=== PATIENT | female | born 1990 | race Caucasian/White ===

== ENCOUNTER 2020-01-16 13:06 | Outpatient (REF) | payer MEDICAID, SELFPAY ==
--- NOTE | 2020-01-16 13:18 | US_ITS ---
EXAMINATION: US DIAGNOSTIC ULTRASOUND BREAST, RIGHT US DIAGNOSTIC ULTRASOUND BREAST, LEFT CLINICAL INFORMATION: 30-year-old with approximately 2 year history of bilateral milky nipple discharge, persistent since cessation of breast-feeding around 2 years ago. Patient notes unremarkable endocrine evaluation and brain MRI. COMPARISON: Brain MRI 07/19/2019. TECHNIQUE: Ultrasound of the bilateral breasts is performed retroareolar and periareolar regions. Grayscale imaging and color Doppler are performed without and with harmonics. At time of imaging, patient also notes area of palpable interest mid 9:00 position which is also included in the imaging. FINDINGS: Right: There is an incidental mildly complicated cyst retroareolar 9:00 position measuring 7 x 3 mm with fine internal avascular septation. There is increased through-transmission of sound. No associated color flow. There is no cystic or solid mass or architectural abnormality at site of patient's palpable concern. The remainder of the targeted areas show no mass or duct ectasia. No edema tracking in soft tissue planes. Left: There is no focal suspicious finding. There is no cystic or solid mass, architectural abnormality, duct ectasia, or edema in the soft tissue planes. Results are discussed with the patient at time of visit. IMPRESSION: 1. Normal study. Incidental cyst under 1 cm retroareolar right breast with fine avascular septation. 2. No solid mass, architectural abnormality, or focal duct ectasia. ASSESSMENT: BI-RADS 2: Benign RECOMMENDATION: Patient's chronic bilateral milky nipple discharge should be managed based on the clinical impression. If clinically indicated, additional imaging of the breasts could be performed with MRI without and with gadolinium contrast.
== END 2020-01-16 13:07 | disposition home or self-care (01) ==
LOC: HO.MAMMO 13:06
PROVIDERS: PCP Family Medicine; Visit Provider Family Medicine
DX: N64.52 Nipple discharge (principal)
CPT/HCPCS: 76642

== ENCOUNTER 2020-01-18 09:14 | Day surgery (SDC) | payer MEDICAID, SELFPAY ==
[2020-01-15 12:26] VITALS: BMI 27.8
--- NOTE | 2020-01-17 14:02 | P.CONAN_ITS ---
Documented by User: Nia Hoyt 01/17/20 14:03 HPI - Anesthesia Eval Consult details Narrative: 30yo F for medial branch block PMFSH Past Medical History Medical History Anxiety Asthma Back pain, thoracic Depression Hx of iron deficiency anemia Hx of small bowel obstruction Post traumatic stress disorder (PTSD) Seasonal allergies Surgical History Surgical History Hx laparoscopic cholecystectomy Hx of abdominoplasty Hx of gastric bypass Hx of ovarian cystectomy Social History Social History Smoking Status: Former smoker Smoking Quit Date: 2016 Use of substances other than those prescribed or required for medical reasons: No Advance Directives: No Advance Directives Information Provided: No Advance Directives on File: No Meds Allergies Allergy/AdvReac Type Severity Reaction Status Date / Time No Known Allergies Allergy Verified 01/15/20 12:21 [No Known Allergies*] Home Medications Medication Instructions Recorded Confirmed Type albuterol sulfate [ProAir HFA] 2 puff INHALATION Q4-6H PRN 01/15/20 01/15/20 History buspirone 5 mg PO BID 01/15/20 01/15/20 History ibuprofen 800 mg PO Q8H PRN 01/15/20 01/15/20 History trazodone 50 mg PO BEDTIME 01/15/20 01/15/20 History valacyclovir 500 mg PO BID PRN 01/15/20 01/15/20 History Exam Exam Date and Time: January 17, 2020 1402 Height,Weight and Vital Signs: Height 5 ft 2 in Weight 68.946 kg Pertinent Lab Results Pertinent Lab Results: Laboratory Tests 08/31/19 10/11/19 14:19 08:35 WBC 5.5 Hgb 12.5 Hct 40.2 Plt Count 194 Sodium 138 Potassium 4.2 Chloride 104 BUN 16 D Creatinine 0.78 Assessment and Plan Assessment Anesthesia Assessment: Chart Reviewed Documented by User: Cody Miguel 01/18/20 09:41 PMFSH Past Medical History Medical History Anxiety Asthma Back pain, thoracic Depression Hx of iron deficiency anemia Hx of small bowel obstruction Post traumatic stress disorder (PTSD) Seasonal allergies Surgical History Surgical History Hx laparoscopic cholecystectomy Hx of abdominoplasty Hx of gastric bypass Hx of ovarian cystectomy Social History Social History Smoking Status: Former smoker Smoking Quit Date: 2016 Use of substances other than those prescribed or required for medical reasons: No Advance Directives: No Advance Directives Information Provided: No Advance Directives on File: No Meds Allergies Allergy/AdvReac Type Severity Reaction Status Date / Time No Known Allergies Allergy Verified 01/15/20 12:21 [No Known Allergies*] Home Medications Medication Instructions Recorded Confirmed Type albuterol sulfate [ProAir HFA] 2 puff INHALATION Q4-6H PRN 01/15/20 01/15/20 His tory buspirone 5 mg PO BID 01/15/20 01/15/20 History ibuprofen 800 mg PO Q8H PRN 01/15/20 01/15/20 History trazodone 50 mg PO BEDTIME 01/15/20 01/15/20 History valacyclovir 500 mg PO BID PRN 01/15/20 01/15/20 History Exam Airway Mallampati Class: II TM Dist: >3cm Neck ROM: Full Loose/Missing/Broken Teeth: Yes and Upper (Chip #9) Heart: RRR Assessment and Plan Assessment Anesthesia Assessment: Anesthesia Plan Discussed Final Anesthetic Review NPO: Yes ASA Class: II Final Preanesthetic Review: Consent Obtained/Reviewed Anesthetic Plan Anesthetic Plan: MAC:
[2020-01-18] VITALS (7 sets, daily range): BP systolic 88–99; BP diastolic 48–59; PULSE 48–62; RESP 16–18; TEMP 36.1–36.7; O2SAT 98–100
--- NOTE | 2020-01-18 07:37 | MHC.SHP ---
Pre-Procedural Eval Section A The patient is an INPATIENT: No The History & Physical has been completed within 30 days and I have reviewed it.: No Section B Chief Complaint: Spondylosis Thoracic Spine Details of Present Illness: thoracic back pain Relevant Family History (Specify if Yes): No Relevant Social History: None Present Medications: None Medical History: No relevant PMH History of Previous Operations: No relevant previous surgery Allergies: Allergies Allergy/AdvReac Type Severity Reaction Status Date / Time No Known Allergies Allergy Verified 01/15/20 12:21 [No Known Allergies*] Review of Systems Sugical H&P ROS: Negative: Constitution, Cardiovascular, Respiratory, Neurological, Psychiatric, Hem-Onc, Allergic/Immunologic, Gastrointestinal, Genitourinary, Musculoskeletal, Integumentary, Endocrine and Eyes/Ears/Nose/Throat Exam Surgical H&P Exam: Normal: HEENT, Normal: Heart, Normal: Lungs, Normal: Extremities, Normal: Abdomen, Normal: Skin and Normal: Neurological Plan Diagnosis/Plan: Unchanged Patient has been examined and remains a candidate for the planned procedure
[2020-01-18 09:40] LABS: UPreg QC Valid YES; Urine Pregnancy NEGATIVE (NEGATIVE)
[2020-01-18] MEDS: Lactated Ringers 1,000 ML 100 ML IVCONT (09:54)
--- NOTE | 2020-01-18 10:42 | FL_ITS ---
EXAMINATION: XR FLUOROSCOPY WITH IMAGES CLINICAL INFORMATION: Medial branch block, bilateral thoracic COMPARISON: MRI thoracic spine 10/23/2019 TECHNIQUE: Fluoroscopy performed by Dr. Bro Norwood. Fluoroscopy time: 0.7 minutes DAP: 4.36 Gycm2 Images: 5 FINDINGS: There are spinal needles overlying the bilateral mid thoracic costovertebral regions. There is contrast in the paraspinal soft tissues and possibly nerve sheath on right. No visible vascular communication. FL/FL guidance in OR IMPRESSION: Fluoroscopy for pain management procedures.
--- NOTE | 2020-01-18 11:49 | PM.OP ---
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
--- NOTE | 2020-01-18 11:50 | MHC.SHP ---
Pre-Procedural Eval Section B Chief Complaint: Spondylosis Thoracic Spine Allergies: Allergies Allergy/AdvReac Type Severity Reaction Status Date / Time No Known Allergies Allergy Verified 01/15/20 12:21 [No Known Allergies*] Plan Patient has been examined and remains a candidate for the planned procedure
--- NOTE | 2020-01-18 11:51 | P.OP_ITS ---
Operative Note Operative Note Narrative: Narrative: This note is constructed using voice recognition software. While every effort has been made to ensure accuracy, investor relations specialist errors may have been included. Narrative: Informed consent was obtained for the procedure before surgery and all the risks and benefits were explained to the patient. All the questions were answered. SHE was brought to the operating room and positioned from on the operating table. patient was sedated. Ketamine and fentanyl were avoided in sedation regimen. Time out was performed delineation correct patient with identifier, correct site and side of the surgery, risk of fire, needs for antibiotics and DVT prophylactics. the patient was positioned prone on the operating table. After that the patient upper back was prepped with chloroprep twice and draped with four Sterile towels. C-arm was brought of the operating field and sq picture of T6 T7 and T8 thoracic vertebra were demonstrated on the screen. Tilting machine contralateral to the left and contralateral to the right transfer process of each vertebra was delineated on the screen. The target of the injection was the most anterior lateral point of the transverse process. In the center of the transverse process projection to the skin the skin wheal was raised using Lidocaine 2 %. 22 gauge 3-1/2 inch needle was driven sequentially to each target under direct observation with C-arm. When needle gently contacted the age of the bone injection of the contrast was performed demonstrating no intrapleural, no intravascular, and no intrathecal spread of the contrast. After that 1.5 cc of bupivacaine mixed with Kenalog was injected into each needle position. Total dose of Kenalog was 80 mg. upon completion of the procedures needles were withdrawn sterile Band-Aids were applied, the patient was awaken and transferred to the [facility]. She went to PACU without immediate complications.
[2020-01-18] MEDS: Acetaminophen 325 MG TABLET 650 MG PO (13:07)
--- NOTE | 2020-01-18 13:39 | HO.POSTANES ---
Post Anesthesia Evaluation Post Anesthesia Evaluation Vital Signs: Vital Signs Temp Pulse Resp BP Pulse Ox 01/18/20 13:05 97.4 F 54 17 95/48 L 100 01/18/20 12:50 59 17 95/52 L 100 01/18/20 12:35 50 16 89/54 L 99 01/18/20 12:20 97 F 48 L 16 94/56 L 98 01/18/20 12:03 48 L 18 88/53 L 98 01/18/20 11:48 97.4 F 62 18 99/59 L 100 01/18/20 09:34 98.1 F 58 16 94/55 L 99 Anesthesia: Monitored Mental Status: Awake Pain Control: Satisfactory Nausea/Vomiting: None Hydration: Adequate Anesthesia-Related Issues: No Anes. Related Issues
== END 2020-01-18 13:53 | disposition home or self-care (01) ==
PROVIDERS: Nurse Practitioner; PCP Family Medicine; Visit Provider Anesthesiology
PROC: (CPT 64461; principal; 2020-01-18 09:40)
DX: M47.814 Spondylosis without myelopathy or radiculopathy, thoracic region (principal); M54.14 Radiculopathy, thoracic region; J45.909 Unspecified asthma, uncomplicated; Z79.899 Other long term (current) drug therapy; Z98.84 Bariatric surgery status; Z90.49 Acquired absence of other specified parts of digestive tract; Z87.891 Personal history of nicotine dependence
CPT/HCPCS: 64461; 64462; 81025; J1100; J2250; J3010; J3300; Q9967

== ENCOUNTER → 2020-02-18 10:29 | Outpatient (BNVA) | payer MEDICAID, SELFPAY | PROVIDERS: PCP Family Medicine; Referring Provider Family Medicine; Visit Provider Anesthesiology | DX: M47.814 Spondylosis without myelopathy or radiculopathy, thoracic region (principal) | CPT/HCPCS: 99212 ==

== ENCOUNTER → 2020-03-24 16:50 | Outpatient (BNVA) | payer MEDICAID, SELFPAY | PROVIDERS: PCP Family Medicine; Visit Provider Anesthesiology | DX: Z76.89 Persons encountering health services in other specified circumstances (principal) ==

== ENCOUNTER 2020-04-08 06:11 | Outpatient (REF) | payer MEDICAID, SELFPAY ==
--- NOTE | 2020-04-08 08:18 | FL_ITS ---
EXAMINATION: XR FLUOROSCOPY WITH IMAGES CLINICAL INFORMATION: M47.814 - Spondylosis without myelopathy or radiculopathy, thoracic region COMPARISON: MRI thoracic spine 10/23/2019, fluoroscopic spot images 01/18/2020 TECHNIQUE: Fluoroscopy performed by Karina Ramirez NP. Fluoroscopy time: 0.4 minutes DAP: 2.16 Gycm2 Images: 4 FINDINGS: There are spinal needles overlying the left mid thoracic paraspinal region. There is contrast paraspinal soft tissues, possibly nerve sheaths. No vascular communication. FL/FL guidance in treatment room IMPRESSION: Fluoroscopy for pain management procedure.
== END 2020-04-08 06:12 | disposition home or self-care (01) ==
LOC: HO.RADIR 06:11
PROVIDERS: Visit Provider Anesthesiology
DX: M47.814 Spondylosis without myelopathy or radiculopathy, thoracic region (principal)
CPT/HCPCS: 64490; 64491; J3300; Q9967

== ENCOUNTER 2020-04-13 07:56 | Emergency (ER) | payer MEDICAID, SELFPAY ==
[2020-04-13 08:37] VITALS: BP 118/69; PULSE 63; RESP 18; TEMP 36.9; O2SAT 98; BMI 52.8
--- NOTE | 2020-04-13 09:01 | ED_ITS ---
HPI - Wound/Laceration General Chief Complaint: Wound/Laceration Stated Complaint: FALL EYE BRUISING Time Seen by Provider: 04/13/20 09:00 Source: patient Mode of arrival: ambulatory Limitations: no limitations History of Present Illness HPI narrative: States she had a bad dream she woke up and friend and she stumbl ed and fell next to her bed hitting the left side of the eyebrow line on the dresser causing small laceration. States there was slight swelling has improved with icing offers no other complaints. States she was going to put a Band-Aid on it and take care of herself however her parents advised her to come in. She denies any other complaints. No LOC. No headache. Pain only at the site of the abrasion/laceration. She denies any eye pain. Is up-to-date on tetanus vaccination. Onset (ago): minute(s) Location: face Place: home Patient tetanus UTD: Yes Context: accidental Associated symptoms: none Treatments prior to arrival: cold therapy and bandage Related Data Home Medications Medication Instructions Recorded Confirmed albuterol sulfate [ProAir HFA] 2 puff INHALATION Q4-6H PRN 01/15/20 01/21/20 buspirone 5 mg PO BID 01/15/20 01/21/20 ibuprofen 800 mg PO Q8H PRN 01/15/20 01/21/20 trazodone 50 mg PO BEDTIME 01/15/20 01/21/20 valacyclovir 500 mg PO BID PRN 01/15/20 01/21/20 Previous Rx's Medication Instructions Recorded ferrous fumarate-vitamin C 1 tab PO DAILY #30 tab 01/28/20 gabapentin 800 mg tablet 800 mg PO TID 30 Days #90 tab 03/24/20 tizanidine 4 mg tablet 8 mg PO BEDTIME 30 Days #60 tab 03/24/20 Allergies Allergy/AdvReac Type Severity Reaction Status Date / Time No Known Allergies Allergy Verified 03/24/20 16:51 [No Known Allergies*] Review of Systems Review of Systems: Constitutional: No Weight loss, No Fever, No Chills, No Night Sweats, No Fatigue, No Malaise ENT/Mouth: No Hearing loss, No Ear Pain, No Nasal Congestion, No Sinus Pain, No Hoarseness, No sore throat, No Rhinorrhea, No Swallowing Difficulty Eyes: No Eye Pain, No Swelling, No Redness, No Foreign Body, No Discharge, No Vision Changes Cardiovascular: No Chest Pain Respiratory: No Cough, Gastrointestinal: No abdominal Pain Genitourinary: Negative Musculoskeletal: No joint pain, No Myalgias, No Joint Swelling Skin: No Skin Lesions, No rash Neuro: No Weakness, No Numbness, No Paresthesias, No Loss of Consciousness, No Dizziness, No Headache Psych: No Social Issues Heme/Lymph: No Bruising Endocrine: Negative Yes all other systems are reviewed and are negative [facility] Past Medical History Medical History (Updated 04/13/20 @ 09:17 by Darian Smith NP) Anxiety Asthma Back pain, thoracic Depression Hx of iron deficiency anemia Hx of small bowel obstruction Iron deficiency anemia Ovarian cyst Post traumatic stress disorder (PTSD) Seasonal allergies 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 Umbilical hernia Vitamin B12 deficiency Surgical History (Updated 01/21/20 @ 13:47 by Vira Lu MD) Hx laparoscopic cholecystectomy Hx of abdominoplasty Hx of gastric bypass Hx of ovarian cystectomy Social History Social History Smoking Status: Former smoker Smoked in Last 30 Days: No Use of substances other than those prescribed or required for medical reasons: No Advance Directives: No Advance Directives Information Provided: Yes Physical Exam Vital Signs: Vital Signs: Last Vital Signs Temp 98.4 F 04/13/20 08:37 Pulse 63 04/13/20 08:37 Resp 18 04/13/20 08:37 BP 118/69 04/13/20 08:37 Pulse Ox 98 04/13/20 08:37 Body Mass Index 52.8 Reviewed Const: General: cooperative and healthy appearing; No acute distress or intoxicated appearing Nutritional Appearance: average body habitus Orientation/consciousness: patient oriented x3 HENMT: Head: Yes normal to inspection Ears: hearing grossly normal b ilaterally Eyes: General: appearance normal, both eyes and all related structures Visual Valle: normal visual valle by confrontation Eyes/upper lids images: 1. 0.5 centimetre superficial abrasion like injury to this area. No deep laceration. Slight ecchymosis. Able to open and close lids without problem. EOM intact. No bony tenderness palpation. No obvious deformity. Neck: Neck: Yes normal visual inspection, No positive Brudzinski's sign, No positive Kernig's sign and No tender Thyroid: Thyroid normal Chest: Chest palpation & inspection: normal inspection of the chest Resp: Effort & Inspection: normal respiratory effort Cardio: Jugular venous distension: no JVD GI: Inspection: Yes normal to inspection Percussion: Yes normal to percussion Auscultation: normal bowel sounds : General: Yes no CVA tenderness Back/Spine/Pelvis: Back: no CVA tenderness Skin: General skin exam: no rashes or lesions noted Neuro: General: patient oriented x3 Extrem: General: Yes normal to inspection Course Course Course Narrative: In review mechanical fall resulting in small superficial abrasion like laceration to the left eyebrow line treatment remedies including sutures versus Dermabond reviewed she would prefer Dermabond I do feel better cosmetic outcome with Dermabond. Site was cleaned using sterile technique and closed with Dermabond. Procedures Procedure Narrative Procedure Narrative: Left eyebrow line superficial abrasion like laceration very superficial does not appear to have any deep tissue involvement no adipose tissue involvement. Site cleaned using sterile technique and dried subsequently applied Dermabond to the area approximating closed. Tolerated well. Site dry has full function. Discharge Plan Discharge Clinical Impression: Laceration Patient Disposition: Home, Self-Care Instructions: Facial Laceration (ED) Additional Instructions: Today you suffered a very small and superficial laceration just below the left eyebrow line. This was repaired with Dermabond (skin adhesive) Allow this to follow-up by self in next 48 to 72 hours Keep site clean and dry Monitor for any signs of infection; including signs of redness, swelling, discharge, pain Return right away if any concerns otherwise You can follow-up with primary care doctor Thank you Prescriptions: No Action buspirone 5 mg Tablet 5 mg PO BID RF: 0 trazodone 50 mg Tablet 50 mg PO BEDTIME RF: 0 ibuprofen 800 mg Tablet 800 mg PO Q8H PRN (Reason: Pain) RF: 0 valacyclovir 500 mg Tablet 500 mg PO BID PRN (Reason: Outbreak) RF: 0 albuterol sulfate [ProAir HFA] 90 mcg/actuation Hfa Aerosol Inhaler 2 puff INHALATION Q4-6H PRN (Reason: Shortness Of Breath Or Wheezing) RF: 0 ferrous fumarate-vitamin C 200 mg (65 mg iron)-25 mg Tablet Extended Release 1 tab PO DAILY Qty: 30 RF: 3 gabapentin 800 mg tablet 800 mg PO TID 30 Days Qty: 90 RF: 12 tizanidine 4 mg tablet 8 mg PO BEDTIME 30 Days Qty: 60 RF: 12 Referrals: Emilee Batista MD [Primary Care Provider] - 5 days Discharge Date/Time: 04/13/20 09:33
== END 2020-04-13 09:33 | disposition home or self-care (01) ==
PROVIDERS: Emergency Provider Emergency Medicine Emergency Medical Services; PCP Family Medicine
DX: S01.112A Laceration without foreign body of left eyelid and periocular area, initial encounter (principal); H57.12 Ocular pain, left eye; W01.190A Fall on same level from slipping, tripping and stumbling with subsequent striking against furniture, initial encounter; Y93.9 Activity, unspecified; Y92.003 Bedroom of unspecified non-institutional (private) residence as the place of occurrence of the external cause; Y99.9 Unspecified external cause status; Z87.891 Personal history of nicotine dependence; Z79.899 Other long term (current) drug therapy; Z98.84 Bariatric surgery status
CPT/HCPCS: 99283; 99284

== ENCOUNTER → 2020-06-16 16:32 | Outpatient (BNVA) | payer MEDICAID, SELFPAY | PROVIDERS: PCP Family Medicine; Visit Provider Anesthesiology ==

== ENCOUNTER → 2020-06-24 10:58 | Outpatient (BNVA) | payer MEDICAID, SELFPAY | PROVIDERS: PCP Family Medicine; Visit Provider Physician Assistant ==

== ENCOUNTER 2020-07-01 06:12 | Outpatient (REF) | payer MEDICAID, SELFPAY ==
--- NOTE | ~2020-07-01 | FL_ITS ---
EXAMINATION: Intraoperative fluoroscopy CLINICAL INFORMATION: Spondylosis COMPARISON: Intraoperative fluoroscopy April 08, 2020 TECHNIQUE: Intraoperative fluoroscopy was provided for use by Dr. Ramirez. A total of 8 images were saved to PACS. A radiologist was not present during imaging. Today's dictation is only for administrative purposes to document intraoperative fluoroscopic usage. TOTAL FLUOROSCOPIC TIME: 0.6 minutes FL/FL guidance in treatment room FINDINGS~\^^ Intraoperative fluoroscopy provided for use by Dr. Ramirez. Please see operative note for detailed findings.
== END 2020-07-01 06:13 | disposition home or self-care (01) ==
LOC: HO.RADIR 06:12
PROVIDERS: Visit Provider Anesthesiology
DX: M47.814 Spondylosis without myelopathy or radiculopathy, thoracic region (principal); Z87.891 Personal history of nicotine dependence
CPT/HCPCS: 64490; 64491; 64492; J3300; Q9967

== ENCOUNTER 2020-08-02 21:00 | Emergency (ER) | payer MEDICAID, SELFPAY ==
[2020-08-02 21:00] VITALS: BP 125/76; PULSE 89; RESP 16; TEMP 36.6; O2SAT 98; BMI 24.8
--- NOTE | 2020-08-02 21:28 | ED_ITS ---
HPI - General Adult General Chief complaint: Skin/Abscess/Foreign Body Stated complaint: FB in nose Time Seen by Provider: 08/02/20 21:26 Source: patient Mode of arrival: ambulatory History of Present Illness HPI narrative: 30-year-old female with a past medical history of anxiety, asthma, bipolar, depression, substance abuse, presenting to the ED stating she believes she saw/felt a tiny white worm in her left nostril [employer] after showering. Admits blew her nose but then did not see the worm. Does report relapsed on cocaine yesterday, most recently used tonight at 5:00 p.m., is on Suboxone. Denies prior hallucinations from illicit drug use. Denies recent travel/bad food or water exposure, perianal itching, ear/throat FB sensation/swelling Onset (ago): hour(s) Related Data Home Medications Medication Instructions Recorded Confirmed albuterol sulfate [ProAir HFA] 2 puff INHALATION Q4-6H PRN 01/15/20 01/21/20 trazodone 50 mg PO BEDTIME 01/15/20 01/21/20 valacyclovir 500 mg PO BID PRN 01/15/20 01/21/20 linaclotide [Linzess] 145 mcg PO DAILY 05/01/20 05/01/20 Previous Rx's Medication Instructions Recorded gabapentin 800 mg tablet 800 mg PO TID 30 Days #90 tab 03/24/20 tizanidine 4 mg tablet 8 mg PO BEDTIME 30 Days #60 tab 03/24/20 Allergies Allergy/AdvReac Type Severity Reaction Status Date / Time No Known Allergies Allergy Verified 08/02/20 21:11 [No Known Allergies*] Review of Systems Review of Systems: Constitutional: No Fever, No Chills ENT/Mouth: No Ear Pain, No Nasal Congestion, +nasal FB, No Hoarseness, No sore throat, No Rhinorrhea, No Swallowing Difficulty Cardiovascular: No Chest Pain, No SOB Respiratory: No Cough, No Wheezing Gastrointestinal: No Nausea, No Vomiting, No Diarrhea Genitourinary: No perianal itching/discomfort Musculoskeletal: No joint pain Skin: No Skin Lesions, No rash Yes all other systems are reviewed and are negative PMFSH Past Medical History Attestation statement: The following information was validated with the patient. 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 Substance abuse Umbilical hernia Uterine mass Vitamin B12 deficiency Surgical History Hx laparoscopic cholecystectomy Hx of abdominoplasty Hx of gastric bypass Hx of ovarian cystectomy Family History Family History Father Throat cancer Hodgkins lymphoma Diabetes HTN (hypertension) Paternal Grandfather Prostate cancer Maternal Grandmother Diabetes Mother HTN (hypertension) Social History Social History (Updated 06/24/20 @ 11:00 by Betsy Carvajal CMA) Household Members: Family and Children Alcohol intake: former Smoking Status: Unknown if ever smoked Substance Use Type: Crack/Cocaine and Opiates Substance Use Frequency: Chronic Longstanding Any prior treatment program specific to substance use: Yes Advance Directives: No Advance Directives Information Provided: No Patient : No Current occupational status: employed Current occupation: Patient Care Physical Exam Vital Signs: Vital Signs: Last Vital Signs Temp 98 F 08/02/20 21:00 Pulse 89 08/02/20 21:00 Resp 16 08/02/20 21:00 BP 125/76 08/02/20 21:00 Pulse Ox 98 08/02/20 21:00 Body Mass Index 24.8 Const: General: cooperative, healthy appearing, comfortable, no acute distress and alert Orientation/consciousness: patient oriented x3 Limitations: no limitations HENMT: Other: No appreciable nasal foreign body/worm Head: Yes normal to inspection Ears: hearing grossly normal bilaterally and TM's normal bilaterally General nose exam: Normal external nose present, Normal nares present, Abnormal nasal septum present perforated, no epistaxis and no foreign body in nares Face and sinus: Yes normal facial exam Mouth: Normal oral and palatal mucosa present Throat: Yes posterior oropharynx normal, Yes uvula midline, No peritonsillar mass, No posterior oropharynx abnormal and No uvular edema Eyes: General: appearance normal, both eyes and all related structures EOM: EOMs intact bilaterally Neck: Neck: Yes normal visual inspection, Yes no lymphadenopathy and Yes no meningeal signs Resp: Effort & Inspection: normal respiratory effort, not labored and no stridor Cardio: Rate: regular rate Heart sounds: S1 normal heart sound present and S2 normal heart sound present Skin: Rashes: no rashes Wounds: no wounds Neuro: General: patient oriented x3 and no meningeal signs Gait exam (Neuro): Normal gait present Extrem: General: Yes normal to inspection Medical Decision Making MDM Narrative Medical decision making narrative: On exam VSS, NAD/well-appearing, no appreciable intranasal FB or worm. Concern for possible drug-induced hallucination. Will have patient follow-up with ENT Discharge Plan Discharge Clinical Impression: FB (nasal foreign body) Qualifiers: Encounter type: initial encounter Qualified Code(s): T17.1XXA - Foreign body in nostril, initial encounter Patient Disposition: Home, Self-Care Instructions: Nasal Foreign Body in Children (ED) Additional Instructions: If you see foreign body in nose try to capture/follow-up with ear nose throat doctor Prescriptions: No Action trazodone 50 mg Tablet 50 mg PO BEDTIME RF: 0 valacyclovir 500 mg Tablet 500 mg PO BID PRN (Reason: Outbreak) RF: 0 albuterol sulfate [ProAir HFA] 90 mcg/actuation Hfa Aerosol Inhaler 2 puff INHALATION Q4-6H PRN (Reason: Shortness Of Breath Or Wheezing) RF: 0 Linzess 145 mcg Capsule 145 mcg PO DAILY RF: 0 gabapentin 800 mg tablet 800 mg PO TID 30 Days Qty: 90 RF: 12 tizanidine 4 mg tablet 8 mg PO BEDTIME 30 Days Qty: 60 RF: 12 Referrals: Samir Amaral [Physician] - 2 days
== END 2020-08-02 21:43 | disposition home or self-care (01) ==
PROVIDERS: Emergency Provider Student in an Organized Health Care Education/Training Program; PCP Family Medicine
DX: T17.1XXA Foreign body in nostril, initial encounter (principal); X58.XXXA Exposure to other specified factors, initial encounter; F11.20 Opioid dependence, uncomplicated; F19.10 Other psychoactive substance abuse, uncomplicated; Y93.E1 Activity, personal bathing and showering; Y92.031 Bathroom in apartment as the place of occurrence of the external cause; Y99.9 Unspecified external cause status
CPT/HCPCS: 99284

== ENCOUNTER 2020-11-19 10:40 | Outpatient (REF) | payer MEDICAID, SELFPAY | END 2020-11-19 10:41 | disposition home or self-care (01) | LOC: HO.LAB 10:40 | PROVIDERS: PCP Family Medicine; Visit Provider Nurse Practitioner Adult Health | DX: Z13.89 Encounter for screening for other disorder (principal) ==

== ENCOUNTER 2020-12-10 08:59 | Outpatient (REF) | payer MEDICAID, SELFPAY | END 2020-12-10 09:00 | disposition home or self-care (01) | LOC: HO.MDS 08:59 | PROVIDERS: PCP Family Medicine; Visit Provider Internal Medicine | DX: D50.9 Iron deficiency anemia, unspecified (principal) | CPT/HCPCS: 96365; 96366; J1200; J1750; Q0163 ==

== ENCOUNTER 2021-02-10 06:31 | Outpatient (REF) | payer MEDICAID, SELFPAY ==
--- NOTE | ~2021-02-10 | FL_ITS ---
EXAMINATION: XR FLUOROSCOPY WITH IMAGES CLINICAL INFORMATION: Spondylosis without myelopathy COMPARISON: Previous exam June 2020 TECHNIQUE: Fluoroscopy performed by taking the. Fluoroscopy time: 0.7 minutes DAP: 3.7 Gycm2 Images: 8 FINDINGS: Images demonstrate needle placement and contrast injection adjacent to the bilateral lateral thoracic vertebral bodies. FL/FL guidance in treatment room IMPRESSION: Fluoroscopy guidance for pain management procedure.
== END 2021-02-10 06:32 | disposition home or self-care (01) ==
LOC: HO.RADIR 06:31
PROVIDERS: Visit Provider Anesthesiology
DX: M47.814 Spondylosis without myelopathy or radiculopathy, thoracic region (principal)
CPT/HCPCS: J3300; Q9967

== ENCOUNTER → 2021-02-25 10:57 | Outpatient (BNVA) | payer MEDICAID, SELFPAY | PROVIDERS: PCP Family Medicine; Visit Provider Anesthesiology | DX: M47.814 Spondylosis without myelopathy or radiculopathy, thoracic region (principal) | CPT/HCPCS: 99212 ==

== ENCOUNTER 2021-05-26 06:00 | Outpatient (REF) | payer MEDICAID, SELFPAY | END 2021-05-26 06:01 | disposition home or self-care (01) | LOC: HO.RADIR 06:00 | PROVIDERS: Visit Provider Anesthesiology | DX: M47.814 Spondylosis without myelopathy or radiculopathy, thoracic region (principal) | CPT/HCPCS: J3300; Q9967 ==

== ENCOUNTER 2021-08-14 06:14 | Outpatient (REF) | payer MEDICAID, SELFPAY ==
--- NOTE | ~2021-08-14 | FL_ITS ---
EXAMINATION: XR FLUOROSCOPY WITH IMAGES CLINICAL INFORMATION: M47.814 - Spondylosis without myelopathy or radiculopathy COMPARISON: Fluoroscopic spot views 02/10/2021; radiographs thoracic spine 05/23/2019 TECHNIQUE: Fluoroscopy performed by Dr. Khanh Grullon. Fluoroscopy time: 0.4 minutes DAP: 1.66 Gycm2 Images: 6 FINDINGS: There are spinal needles overlying the outer mid thoracic neural foramina at 4 adjacent levels on both the left and right sides. There is contrast seen in the respective nerve sheaths. Some early transforaminal epidural extension is suggested. No visible vascular communication. FL/FL guidance in treatment room IMPRESSION: Fluoroscopy for pain management procedures.
== END 2021-08-14 06:15 | disposition home or self-care (01) ==
LOC: HO.RADIR 06:14
PROVIDERS: Visit Provider Internal Medicine
DX: M47.814 Spondylosis without myelopathy or radiculopathy, thoracic region (principal)
CPT/HCPCS: 64490; 64491; 64492; J1020; J1040; J2795; Q9967

== ENCOUNTER 2024-01-16 16:47 | Outpatient (REF) | payer MEDICAID, SELFPAY ==
[2024-01-17 13:01] LABS: Appearance Urine Clear; Color Urine Dark Yellow; Glucose Urine UA Negative (Negative); Leukocyte Esterase Urine Negative (Negative); Nitrite Urine Negative (Negative); PH 6.5 (5.0-9.0); Specific Gravity - Urine >= 1.030 (1.005-1.025); Urine Blood Negative (Negative); Urine Ketones Trace mg/dL (Negative); Urine Protein Trace mg/dL (Neg-Trace)
[2024-01-17 13:11] LABS: Bacteria Urine None Seen (None Seen); Hyaline Casts Urine 0-2 /LPF (0-2); RBC Urine 0-2 /HPF (0-2); Squamous Epithelial Cell Urine 0-2 /HPF (0-2); WBC Urine 0-5 /HPF (0-5)
== END 2024-01-16 16:48 | disposition home or self-care (01) ==
LOC: HO.LNP 16:47
PROVIDERS: Visit Provider Family Medicine
DX: R39.15 Urgency of urination (principal); R32 Unspecified urinary incontinence
CPT/HCPCS: 81001

== ENCOUNTER 2024-01-17 14:06 | Outpatient (REF) | payer MEDICAID, SELFPAY ==
[2024-01-17 14:27] LABS: MANUAL DIFF FLAG NO
[2024-01-17 14:57] LABS: Basophils Percent Auto 0.3 % (0-2); Eosinophils Absolute Auto 0.1 X10*3/uL (0.0-0.4); Eosinophils Percent Auto 0.9 % (0-4); Hematocrit 39.2 % (37.0-47.0); Hemoglobin 12.8 g/dl (12.0-16.0); Imm Gran Abs Auto 0.01 X10*3/uL (0.00-0.03); Imm Gran Pct Auto 0.2 % (0.0-0.4); Lymphocytes Absolute Auto 2.2 X10*3/uL (1.2-4.9); Lymphocytes Percent Auto 33.9 % (20-40); Mean Corpuscular HGB Conc 32.7 g/dl (31.0-35.0); Mean Corpuscular Hemoglobin 25.5 pg (27.0-33.0); Mean Corpuscular Volume 78.1 fL (80.0-98.0); Mean Platelet Volume 9.4 fL (9.4-12.3); Monocytes Absolute Auto 0.4 X10*3/uL (0.1-1.2); Monocytes Percent Auto 6.3 % (2-11); Neutrophils Absolute Auto 3.7 x10*3/uL (2.0-8.3); Neutrophils Percent Auto 58.4 % (45-73); Platelet Count 267 X10*3/uL (160-400); Red Blood Count 5.02 X10*6/uL (4.20-5.50); Red Cell Distribution Width 14.8 % (11.0-16.0); White Blood Count 6.4 X10*3/uL (4.8-10.8)
[2024-01-17 15:30] LABS: Alanine Aminotransferase 20 U/L (0-31); Albumin Level 4.1 g/dL (3.5-5.0); Alkaline Phosphatase 79 U/L (39-117); Anion Gap 12 (12-20); Aspartate Amino Transferase 20 U/L (5-31); Bilirubin Total 0.4 mg/dL (0.0-1.0); Blood Urea Nitrogen 9 mg/dL (9-16); Calcium 9.9 mg/dL (8.4-10.2); Carbon Dioxide 28 mmol/L (22-29); Chloride 109 mmol/L (96-108); Estimated Glomerular Filt Rate > 60; Glucose Random 105 mg/dL (60-115); Iron 35 mcg/dL (30-160); Percent Iron Saturation 13 % (15-50); Sodium 145 mmol/L (135-145); Total Iron Binding Capacity 272 mcg/dL (228-428); Total Protein 7.2 g/dL (6.5-8.0); Unsaturated Iron Binding 237 ug/dL
[2024-01-17 15:44] LABS: Ferritin 41 ng/mL (10-122); TSH reflex Free T4 1.69 uIU/mL (0.32-4.0)
[2024-01-17 15:58] LABS: Folate 7.6 ng/mL (> or = 4.0); Vitamin B12 281 pg/mL (200-900)
== END 2024-01-17 14:07 | disposition home or self-care (01) ==
LOC: HO.XRAY 14:06
PROVIDERS: PCP Family Medicine; Visit Provider Family Medicine
DX: D50.9 Iron deficiency anemia, unspecified (principal); R32 Unspecified urinary incontinence; R39.15 Urgency of urination; M25.551 Pain in right hip; M25.552 Pain in left hip; M25.561 Pain in right knee; M25.562 Pain in left knee; G89.29 Other chronic pain
CPT/HCPCS: 36415; 73502; 73562; 80053; 82607; 82728; 82746; 83540; 84443; 85025

== ENCOUNTER 2024-04-10 09:00 | Outpatient (REF) | payer OTHER, SELFPAY ==
--- NOTE | ~2024-04-10 | XR_ITS ---
EXAMINATION: XR TOES, RIGHT CLINICAL INFORMATION: right toe deformity after trauma. COMPARISON: Right toe deformity after trauma TECHNIQUE: 3 views of the right toes were obtained. FINDINGS: There are no fractures or dislocations. No joint effusion is identified. No bone, joint or soft tissue abnormality is demonstrated. XR/XR toe RT min 2V IMPRESSION: Unremarkable right toe examination. Electronically signed by: Adair George MD 04/10/2024 11:42 AM [facility]
--- OUTSIDE RECORDS SUMMARY | 2024-04-10 09:34 | XMS_ITS | Data Portability ---
Author Organization [facility] [id number] Address [address] [place] [address] Assessment No assessment recorded. Plan of Treatment Reminders Order Date Submit Date Provider Last Modified By Organization Details Last Modified Time Details Appointments None record ed. Lab None record ed. Referral None record ed. Procedures None record ed. Surgeries None record ed. Imaging None record ed. Medication Orders None record ed. Patient TargetsNo targets recorded. Patient InstructionsNo instructions recorded. Reason for Referral None Reported. Medical Equipment None Reported. Medications Name Sig Start Date Stop Date Status Note LastModified by Organization Details LastModified Time glycopyrrolate 1 mg tablet TAKE 1 TABLET BY MOUTH TWICE DAILY active Not Available Not Available No t Available lamotrigine 150 mg tablet TAKE 1 TABLET BY MOUTH AT BEDTIME active Not Available Not Available No t Available clonidine HCl 0.1 mg tablet TAKE 1 TABLET BY MOUTH TWICE DAILY NEEDED active Not Available Not Available No t Available lamotrigine 25 mg tablet TAKE 2 TABLETS BY MOUTH AT BEDTIME active Not Available Not Available No t Available doxazosin 2 mg tablet TAKE 2 TABLETS BY MOUTH AT BEDTIME active Not Available Not Available No t Available aripiprazole 10 mg tablet TAKE 1 TABLET BY MOUTH AT BEDTIME active Not Available Not Available No t Available aripiprazole 5 mg tablet TAKE 1 AND 1/2 TABLETS BY MOUTH AT BEDTIME active Not Available Not Available No t Available Depo-SubQ provera 104 104 mg/0.65 mL subcutaneous syringe INJECT 0.65 ML UNDER THE SKIN EVERY 3 MONTHS active Not Available Not Available No t Available Vyvanse 20 mg capsule TAKE 1 CAPSULE BY MOUTH EVERY MORNING active Not Available Not Available No t Available levonorgestrel 1.5 mg tablet active Not Available Not Availabl e Not Available Suboxone 8 mg-[address] FILM UNDER THE TONGUE TWICE DAILY active Not Available Not Available No t Available Linzess 290 mcg capsule TAKE 1 CAPSULE BY MOUTH 30 MINUTES BEFORE FIRST MEAL OF THE DAY ON AN EMPTY STOMACH active Not Available Not Available No t Available Vyvanse 10 mg capsule TAKE 1 CAPSULE BY MOUTH DAILY active Not Available Not Available No t Available Vitals None Recorded Social History None recorded. Functional Status None recorded. Mental Status None recorded. Family History Nothing Reported. Medical History No medical history recorded. Gynecological HistoryNo gynecological history recorded. Obstetrics History GPAL:G 0 P 0 0 0 0 Past Encounters Encounter ID Performer Location Encounter Start Date Encounter Closed Date Diagnosis/Indication Diagnosis SNOMED-CT Code Diagnosis ICD10 Code Diagnosis [id number] [address] [place] [address] 04/23/2020 14:20:44 04/23/2020 15:32:38 Health Concerns Section Related Observation LastModified by Organization Detai ls LastModified Time None Recorded Concern Status LastModified by Organization Details LastModified Time None Recorded Advance Directives Directive None Recorded Payers Encounter Date Sequence Insurance Name Policy Number Policy Alarcon Covered Member ID Alarcon Member ID Guarantor Name 04/23/2020 1 [place] [facility] Tierney Rodriguez [id number] Tierney Rodriguez OBGyn Episode No OBEpisode recorded.
== END 2024-04-10 09:01 | disposition home or self-care (01) ==
LOC: HO.HHCX 09:00
PROVIDERS: Visit Provider Internal Medicine
DX: M20.61 Acquired deformities of toe(s), unspecified, right foot (principal)
CPT/HCPCS: 73660

== ENCOUNTER → 2024-04-10 09:00 | Outpatient (BNV) | payer SELFPAY | PROVIDERS: Visit Provider Radiology Diagnostic Radiology | DX: M20.61 Acquired deformities of toe(s), unspecified, right foot (principal) | CPT/HCPCS: 73660 ==